=== PATIENT | female | born 1990 ===

== ENCOUNTER → 2017-11-10 | Outpatient (CLI) | payer OTHER ==
[~2017-11-10] MED LIST: AMOX250 PO; ANTOXYBENA OT; LIDO2TG30 TOP; NEOPOLGRAS OU; NORETHTP TOP; OXYACE5T PO; RXOXYACE PO
[2017-11-12 10:06] LABS: HBSAG SCREEN Negative (Negative); HCV ANTIBODY <0.1 (0.0-0.9); HEPATITIS B SURF AB QUANT >1000.0 mIU/mL (Immunity>9.9)
[2017-11-13 09:10] LABS: HIV SCREEN 4TH GENERATION WRFX Non Reactive (Non Reactive)
== END | disposition home or self-care (01) ==
LOC: LAB SHORT 19:09 → LAB EV 19:09
PROVIDERS: Internal Medicine
DX: Z20.9 Contact with and (suspected) exposure to unspecified communicable disease (principal)
CPT/HCPCS: 84460; 86317; 86803; 87340; 87389

== ENCOUNTER → 2018-02-09 | Outpatient (CLI) | payer OTHER ==
[2018-02-11 07:07] LABS: HIV SCREEN 4TH GENERATION WRFX Non Reactive (Non Reactive)
== END | disposition home or self-care (01) ==
LOC: LAB EV 16:29 → LAB SHORT 16:29
PROVIDERS: Internal Medicine
DX: Z20.9 Contact with and (suspected) exposure to unspecified communicable disease (principal)
CPT/HCPCS: 87389

== ENCOUNTER → 2019-06-11 | Outpatient (CLI) | payer OTHER | LOC: LAB SHORT 18:18 → LAB 18:18 | PROVIDERS: Registered Nurse Community Health | DX: Z30.45 Encounter for surveillance of transdermal patch hormonal contraceptive device (principal) | CPT/HCPCS: G0123 ==